=== PATIENT | male | born 1960 | race Caucasian/White ===

== ENCOUNTER → 2016-11-18 | Outpatient (CLI) | payer BC, OTHER ==
[2016-11-18 08:11] LABS: *BILIRUBIN,URIN NEGATIVE (NEGATIVE); *BLOOD, URINE 1+ (NEGATIVE); *CLARITY,URINE CLEAR (CLEAR); *COLOR,URINE YELLOW (YELLOW); *KETONES,URINE NEGATIVE (NEGATIVE); *PROTEIN,URINE NEGATIVE (NEGATIVE); *UROBILINOGEN,URINE 0.2 E.U./dl (NORMAL); LEUKOCYTE ESTERASE ,URINE NEGATIVE (NEGATIVE); NITRITE, URINE NEGATIVE (NEGATIVE); UGLUCOSE NEGATIVE (NEGATIVE)
[2016-11-18 08:45] LABS: BACTERIA,URINE NONE SEEN /HPF (NONE SEEN); MUCUS,URINE FEW /LPF (0-FEW); RBC,URINE 0-3 /HPF (0-3); SQUAMOUS EPITHELIAL CELL,UR FEW /HPF (NONE SEEN); WBC,URINE 0-3 /HPF (0-3)
[2016-11-18 08:49] LABS: THYROID STIMULATING HORMONE 2.322 mIU/mL (0.358-3.740)
[2016-11-18 09:11] LABS: BASOPHILS % (AUTO) 0.5 % (0.0-2.0); EOSINOPHILS # (AUTO) 0.1 K/uL (0.0-0.7); EOSINOPHILS % (AUTO) 1.2 % (0.0-7.0); HEMATOCRIT 48.7 % (40-50); HEMOGLOBIN 16.7 G/DL (14.0-18.0); LYMPHOCYTES % (AUTO) 29.7 % (20.5-51.5); MEAN CORPUSCULAR HEMOGLOBIN 32.1 UUG (27.0-31.0); MEAN CORPUSCULAR HGB CONC 34 g/dL (32.0-37.0); MEAN CORPUSCULAR VOLUME 93.8 FL (82.0-92.0); MONOCYTES # (AUTO) 0.6 K/UL (0.1-1.30); MONOCYTES % (AUTO) 9.6 % (0.0-11.0); PLATELET COUNT (AUTO) 253 K/UL (150-450); RED BLOOD CELL COUNT(AUTO) 5.19 MIL/UL (4.7-6.1); WHITE BLOOD COUNT (AUTO) 6.7 K/UL (4.0-11.2)
[2016-11-18 12:16] LABS: BILIRUBIN,TOTAL 0.4 mg/dL (0.2-1.0); POTASSIUM 4.3 mmol/L (3.5-5.1); TOTAL PROTEIN, SERUM 7.8 g/dL (6.4-8.2)
[2016-11-19 05:06] LABS: VIT D, 25-HYDROXY 15.9 ng/mL (30.0-100.0)
[2016-11-19 06:07] LABS: *TESTOSTERONE, SERUM 317 ng/dL (264-916)
== END | disposition home or self-care (01) ==
LOC: LAB 07:10
PROVIDERS: ATTEND Internal Medicine Medical Oncology
DX: Z00.01 Encounter for general adult medical examination with abnormal findings (principal); E78.5 Hyperlipidemia, unspecified
CPT/HCPCS: 36415; 70030-TC; 82306; 84153; 84402; 84403; 84443; 85025

== ENCOUNTER 2017-05-04 10:32 | Emergency (ER) | payer BC, OTHER ==
[~2017-05-04] VITALS: Ht 165.1 cm; Wt 86.2 kg
[2017-05-04] MEDS ORDERED: NITROGLYCERIN 0.4 MG/TAB BOTTLE SL ONE ×2 (10:45→11:10)
[2017-05-04] MEDS ORDERED: IV NORMAL SALINE 500 ML BAG IV ONE (10:45)
[2017-05-04] MEDS ORDERED: ASPIRIN 325 MG TABLET PO ONE (10:45)
[2017-05-04 11:09] LABS: BASOPHILS % (AUTO) 0.4 % (0.0-2.0); EOSINOPHILS % (AUTO) 0.2 % (0.0-7.0); HEMATOCRIT 47.1 % (36.7-47.1); HEMOGLOBIN 16.6 g/dL (12.5-16.3); LYMPHOCYTES # (AUTO) 2.3 K/uL (20.0-40.0); LYMPHOCYTES % (AUTO) 20.1 % (20.5-51.5); MEAN CORPUSCULAR HEMOGLOBIN 32.4 uug (23.8-33.4); MEAN CORPUSCULAR HGB CONC 35 g/dL (32.5-36.3); MONOCYTES # (AUTO) 1.4 K/uL (2.0-10.0); MONOCYTES % (AUTO) 12.5 % (0.0-11.0); NEUTROPHILS # (AUTO) 7.5 K/uL (1.8-8.9); NEUTROPHILS % (AUTO) 66.8 % (38.5-71.5); PLATELET COUNT (AUTO) 236 K/uL (152-348); RED BLOOD CELL COUNT(AUTO) 5.12 MIL/uL (4.06-5.63); WHITE BLOOD COUNT (AUTO) 11.2 K/uL (3.6-10.2)
[2017-05-04] MEDS ORDERED: ASPIRIN 325 MG TABLET ONE (11:10)
[2017-05-04 11:15] LABS: CREATININE 1.1 mg/dL (0.6-1.3)
--- NOTE | 2017-05-04 11:28 | NUR ---
Pt c/o of cp 8/10, worse w inspiration, Dr. Aguirre at bedside for MSE at 1042. Labs/EKG/Saline Lock/CXR/Meds, completed. CP decreased from 8/10 to 6/10 after 3 NTG SL. Patient resting, nsr, PO2 94% on RA. Awaiting for labwork.
[2017-05-04 11:30] LABS: BILIRUBIN,DIRECT 0.2 mg/dL (0.0-0.2); BILIRUBIN,TOTAL 0.9 mg/dL (0.2-1.0); TOTAL PROTEIN, SERUM 8.1 g/dL (6.4-8.2)
--- NOTE | 2017-05-04 15:58 | NUR ---
Patient discharged to home in stable conditon. Written and verbal after care instructions given. Patient verbalizes understanding of instructions.
[2017-05-04 15:59] VITALS: BP 151/74
== END 2017-05-04 16:00 | disposition home or self-care (01) ==
LOC: ER 10:32
DX: R07.89 Other chest pain (principal); R06.02 Shortness of breath
CPT/HCPCS: 36415; 70030-TC; 71045; 85025; 85730; 93005; A4663; J7040